=== PATIENT | male | born 1980 | race Caucasian/White ===

== ENCOUNTER 2018-01-14 10:51 | Emergency (ER) | payer OTHER ==
[~2018-01-14] VITALS: Ht 177.8 cm; Wt 90.7 kg
[~2018-01-14 10:51] MED LIST: ALLEGRA-D 12 H1 EAC1; HYDROCODONE-AP1 EAC6 PO; MOBIC15 MG PO; NABUMETONE 750750 M1 PO; NAPROSYN500 MG PO; NORCO 5-325 TA1 EACH PO; STOOL SOFTENER1 EAC2 PO
[2018-01-14 12:15] LABS: HEMATOCRIT 46.2 % (42.0-52.0); MCH 31.8 pg (26.0-34.0); MCHC 34.8 g/dL (28.0-37.0); MCV 91.6 fL (80.0-100.0); MPV 6.8 fl. (7.2-11.1); NUCLEATED RBCS 0 /100WBC; PLATELET COUNT* 214 thou/uL (150-400); RBC 5.04 mil/uL (4.50-6.00); RDW-CV 12.6 % (10.5-14.5); WBC 10.4 thou/uL (4.0-11.0)
[2018-01-14 12:37] LABS: URINE BILIRUBIN NEGATIVE (Negative); URINE BLOOD NEGATIVE (Negative); URINE CLARITY CLEAR; URINE COLOR YELLOW; URINE GLUCOSE-RANDOM NEGATIVE (Negative); URINE KETONES NEGATIVE (Negative); URINE LEUKOCYTES-REFLEX NEGATIVE (Negative); URINE NITRITE-REFLEX NEGATIVE (Negative); URINE PROTEIN NEGATIVE (Negative); URINE SPECIFIC GRAVITY <= 1.005 (1.005-1.030); URINE UROBILINOGEN 0.2 E.U./dl (0.2-1.0)
[2018-01-14 12:43] LABS: ABSOLUTE LYMPHOCYTES 0.3 thou/uL (0.8-5.3); ABSOLUTE MONOCYTES 0.5 thou/uL (0.0-1.2); ABSOLUTE NEUTROPHILS 9.6 thou/uL (1.6-8.1); ANISOCYTOSIS 1+; CALCIUM 8.1 mg/dL (8.5-10.1); PLATELET ESTIMATE ADEQUATE; POIKILOCYTOSIS 1+; POTASSIUM 3.7 mmol/L (3.5-5.1)
[2018-01-14 12:47] LABS: ALBUMIN 3.4 g/dL (3.4-5.0); TOTAL BILIRUBIN 0.8 mg/dL (<0.1-1.0); TOTAL PROTEIN 6.8 g/dL (6.4-8.2)
[2018-01-14 12:52] LABS: AMP/METHAMP Negative (Negative); BARBITURATES Negative (Negative); BENZODIAZEPINES Negative (Negative); COCAINE Negative (Negative); METHADONE Negative (Negative); OPIATES Negative (Negative); PCP Negative (Negative); THC Negative (Negative)
[2018-01-14] MEDS ORDERED: ONDANSETRON HCL4 M2 PO (13:48)
[2018-01-14 13:56] VITALS: BP 111/68
== END 2018-01-14 13:57 | disposition home or self-care (01) ==
LOC: M.ERS 10:51
PROVIDERS: Nurse Practitioner Family
DX: R11.10 Vomiting, unspecified (principal); R10.30 Lower abdominal pain, unspecified

== ENCOUNTER → 2020-06-15 | Outpatient (CLI) | payer OTHER ==
[~2020-06-15] MED LIST changes: +HYDROCODON-ACE1 EAC7 PO; +ONDANSETRON HCL4 M2 PO
== END ==
LOC: M.CT 14:30
PROVIDERS: ATTEND Specialist
DX: K76.0 Fatty (change of) liver, not elsewhere classified (principal); J98.11 Atelectasis; Z98.52 Vasectomy status

== ENCOUNTER 2020-06-16 09:47 | Emergency (ER) | payer OTHER ==
[~2020-06-16] VITALS: Ht 180.3 cm; Wt 99.8 kg
[~2020-06-16 09:47] MED LIST changes: -HYDROCODON-ACE1 EAC7 PO
[2020-06-16 10:11] VITALS: BP 124/88
[2020-06-16 10:12] LABS: ABSOLUTE BASOPHILS 0.1 thou/uL (0.0-0.2); ABSOLUTE EOSINOPHILS 0.1 thou/uL (0.0-0.7); ABSOLUTE LYMPHOCYTES 2.1 thou/uL (0.8-5.3); ABSOLUTE MONOCYTES 0.5 thou/uL (0.0-1.2); ABSOLUTE NEUTROPHILS 2.7 thou/uL (1.6-8.1); BASOPHILS 1.1 %; EOSINOPHILS 2.4 %; HEMATOCRIT 47.3 % (42.0-52.0); HEMOGLOBIN 16.5 gm/dL (14.0-18.0); LYMPHOCYTES 38.6 %; MCH 31.7 pg (26.0-34.0); MCHC 34.9 g/dL (28.0-37.0); MCV 90.8 fL (80.0-100.0); MONOCYTES 8.4 %; MPV 6.7 fl. (7.2-11.1); NUCLEATED RBCS 0 /100WBC; PLATELET COUNT* 244 thou/uL (150-400); POLYS 49.5 %; RBC 5.21 mil/uL (4.50-6.00); RDW-CV 12.5 % (10.5-14.5); WBC 5.5 thou/uL (4.0-11.0)
[2020-06-16 10:14] LABS: CALCIUM 9.5 mg/dL (8.5-10.1); CREATININE 0.8 mg/dL (0.6-1.3)
[2020-06-16 11:37] VITALS: BP 112/69
[2020-06-16] MEDS ORDERED: HYDROCODON-ACE1 EAC7 PO (14:20)
[2020-06-16 14:22] VITALS: BP 112/69
--- NOTE | 2020-06-21 10:29 | OP ---
[facility] [address] [place] [address] OPERATIVE REPORT Name: AMARILIS MEDINA Room: [facility]#: [id number] Admission: 06/16/20 Attend Phys: Discharge: 06/16/20 Date of : 76 Report #: [id number] THIS REPORT FOR: cc: Kirill Chavez. Kirill Fallon. NATALIA ~ Med Williamson MD DATE OF SERVICE: 06/16/2020 PREOPERATIVE DIAGNOSIS: Acute appendicitis. POSTOPERATIVE DIAGNOSIS: Acute appendicitis. OPERATION: Laparoscopic appendectomy. SURGEON: Med Williamson MD ANESTHESIA: General. ESTIMATED BLOOD LOSS: Minimal. SPECIMEN: Appendix. DESCRIPTION OF PROCEDURE: After informed consent was obtained, the patient was brought to the operating room and placed supine. SCDs were placed and working, preoperative antibiotics were administered, general anesthesia was induced. The abdomen was prepped and draped in the usual sterile fashion. A 10 mm incision was made below the umbilicus. Fascia was incised and a trocar was placed. Pneumoperitoneum was established. Right upper quadrant and left lower quadrant 5 mm trocars were placed. The appendix was noted to be inflamed and edematous consistent with appendicitis. It was grasped and retracted anteriorly. A window was made in the mesoappendix. The mesoappendix was then ligated with 2 fires of the MIAH hill load stapler. There was excellent hemostasis. The base of the appendix was then stapled off with a MIAH blue load stapler. The appendix was placed into an Endopouch and removed. The fascia was then closed with a xrhjum-[id number]-pzsbf 0 Vicryl. Skin was closed with 4-0 Monocryl. Incisions were sealed with Dermabond. COMPLICATIONS: None. DISPOSITION: The patient was taken to recovery in satisfactory condition. <ELECTRONICALLY SIGNED> By: Med Williamson MD 06/21/20 1029 1332 [id number] Williamson MD /nt
--- NOTE | 2020-06-21 17:06 | PATH ---
[place] [address] PATHOLOGY RPT PROCEDURE Name: [facility]ILIS MEDINA [id number]: 06/16/20 Date of : 76 Discharge: 06/16/20 Report #: [id number] Path Case #: [id number] [facility] Accession Number: [id number] . 01 Material submitted: . appendix - APPENDIX . 01 Clinical history: . APPENDICITIS . 02 Diagnosis: Appendix: - Acute appendicitis, periappendicitis and serositis with serosal fibrous adhesions. (YARELIS:vitor; 06/21/2020) S 06/21/2020 1534 Local . 02 Electronically signed: . Chaz Bernardo MD, Pathologist NPI- [id number] . 01 Gross description: . The specimen is received in formalin, labeled "Amarilis Medina, appendix" and consists of an appendix measuring 5.6 cm in length and up to 1.0 cm in diameter with mesoappendix measuring 2.1 cm thick. The serosa is pink-montgomery with focal hemorrhage and thick adhesions at the tip. The margin is closed with a line of cecilio and inked black. Sectioning reveals a central pinpoint lumen. Car Hiker sections are submitted in A1-A2. (SDY; 06/17/2020) SYU/SYU 06/17/2020 1327 Local . 02 Microscopic: . . . 02 Pathologist provided ICD-10: K35.80, K65.8 . 02 CPT . 548032 Specimen Comment: A courtesy copy of this report has been sent to [phone], [phone] Specimen Comment: [phone], Specimen Comment: Report sent to , / Performed at: [address], [place] [id number] MD Felipe Mcbride MD Phone: [phone] [place] [address] PATHOLOGY RPT PROCEDURE Name: AMARILIS MEDINA [id number] Admission: 06/16/20 Date of : 76 Discharge: 06/16/20 Report #: [id number] Path Case #: [id number] Performed at: [facility] [address], [place], [place] [id number] MD Chaz Bernardo MD Phone: [phone]
== END 2020-06-16 15:30 | disposition home or self-care (01) ==
LOC: M.ERS 09:47 → M.SUR 09:47 → M.TBA-ER 10:25 → M.SUR 15:30
PROVIDERS: Emergency Medicine Emergency Medical Services
DX: K37 Unspecified appendicitis (principal); Z20.828 Contact with and (suspected) exposure to other viral communicable diseases

== ENCOUNTER → 2020-12-15 | Outpatient (CLI) | payer OTHER ==
[~2020-12-15] MED LIST changes: +HYDROCODON-ACE1 EAC7 PO
== END ==
LOC: M.ULTRA 12-08 09:00
PROVIDERS: ATTEND Family Medicine
DX: K76.0 Fatty (change of) liver, not elsewhere classified (principal); R74.8 Abnormal levels of other serum enzymes